=== PATIENT | male | born 1980 | race Caucasian/White ===

== ENCOUNTER 2017-04-23 22:34 | Emergency (ER) | payer BC ==
--- NOTE | 2017-04-23 23:03 | RAD ---
EXAM DESCRIPTION: Abdomen Series CLINICAL HISTORY: epigasric substernal pain COMPARISON: None FINDINGS: There is mild bilateral peribronchial cuffing. Supine and upright images of the abdomen were submitted. There is no free air in the abdomen. There is no evidence of bowel obstruction. IMPRESSION: Findings suggest mild edema or viral inflammation of the lungs. Constipation. Electronically signed by: Gregory Rahman 04/23/2017 11:02 PM [facility]
--- NOTE | 2017-04-23 23:04 | ED.PDOC ---
History of Present Illness - General Chief Complaint: Abdominal Pain Stated Complaint: epigastric pain Time Seen by Provider: 04/23/17 22:35 Source: patient Exam Limitations: no limitations - History of Present Illness Initial Comments: the patient is a 37-year-old male presenting to emergency room secondary to epigastric discomfort that first started yesterday. He had some radiation to his back into his left shoulder. It occurred while he was sitting still at home. He does normally lead a fairly active lifestyle and does not have any chest pain with activity. He does have a long-standing history of gastritis and gastroesophageal reflux disease for which he does not take any medications. He started developing some epigastric and substernal chest discomfort today but didn't get worse just an hour prior to arrival so he decided to show up for work up here. He apparently has had some questionable discomfort in the past as he has had a nuclear scan roughly for 5 years ago according to him that was completely normal. I do not have any previous EKGs for comparison. He does report concomitant symptoms of diaphoresis and his hands tingling. Timing/Duration: 24 hours Severity: moderate Improving Factors: nothing Worsening Factors: nothing Associated Symptoms: diaphoresis, malaise, nausea/vomiting - 1 Allergies/Adverse Reactions: Allergies NO KNOWN ALLERGY Allergy (Verified 04/23/17 23:05) Home Medications: Ambulatory Orders Hydrochlorothiazide 04/23/17 Lisinopril 5 mg PO 04/23/17 Esomeprazole Magnesium [Nexium] 40 mg PO BID #30 cap 04/24/17 Review of Systems - Review of Systems Constitutional: States: malaise EENTM: States: no symptoms reported Respiratory: States: no symptoms reported Cardiology: States: chest pain - lower substternal and very brief Gastrointestinal/Abdominal: States: abdominal pain - pigastric, nausea, vomiting Genitourinary: States: no symptoms reported Musculoskeletal: States: back pain - radiating pain to the left posterior shoulder Skin: States: no symptoms reported Neurological: States: no symptoms reported Endocrine: States: no symptoms reported All other Systems: No Change from Baseline Past Medical History (General) - Patient Medical History Hx Hypertension: Yes Hx Cancer: No Hx Hepatitis C: No - Vaccination History Hx Tetanus, Diphtheria Vaccination: No Hx Influenza Vaccination: Yes - Social History Hx Tobacco Use: No Hx Alcohol Use: No - Female History Patient : No Family Medical History - Family History Mother Family History: Unknown Physical Exam - Physical Exam General Appearance: Alert, Anxious, No apparent distress Eye Exam: bilateral normal Ears, Nose, Throat: hearing grossly normal, normal ENT inspection, normal pharynx Neck: full range of motion, supple Respiratory: lungs clear, normal breath sounds, no respiratory distress, no accessory muscle use Cardiovascular/Chest: normal peripheral pulses, regular rate, rhythm, no edema Peripheral Pulses: radial,right: 2+, radial,left: 2+, dorsalis pedis,right: 2+, dorsalis pedis,left: 2+ Gastrointestinal/Abdominal: soft, other - mild epigastric discomfort palpation. No definite rebound or peritoneal signs. Rectal Exam: deferred Back Exam: normal inspection, no CVA tenderness, no vertebral tenderness Extremity: normal range of motion, non-tender, normal inspection, no pedal edema , normal capillary refill Neurologic: form designer II-XII nml as tested, alert, normal mood/affect, oriented x 3 Skin Exam: normal color Comments: Vital Signs - 24 hr 04/23/17 22:40 Temperature 98.0 F Pulse Rate [ 73 Right] Respiratory 16 Rate Blood Pressure 141/95 [Left Arm] O2 Sat by Pulse 97 Oximetry Progress - Progress Progress: 04/24/17 02:00 the patient is a 37-year-old male presenting to the emergency room secondary to epigastric and lower substernal chest pain. This appears to be much more likely due to gastritis and esophagitis than to a cardiac origin. the problem may be currently being compounded by constipation. The patient should take MiraLAX daily for the next week. Additionally he will be written for Nexium 40 mg twice daily for the next 2 weeks after which he can take Pepcid 20 mg daily [id number]. Additionally he should keep some liquid Maalox with him for any symptom flare. ER warnings were given for any acute worsening. He should avoid large meals and hot or spicy foods along with nicotine caffeine and alcohol for at least the next week. he should follow up with his primary care doctor before the weekend. - Results/Orders Results/Orders: Laboratory Tests 04/23/17 04/23/17 04/23/17 22:45 22:45 22:45 WBC 10.4 RBC 6.38 H Hgb 17.5 Hct 51.7 MCV 81.0 MCH 27.4 MCHC 33.9 RDW 13.1 Plt Count 233 MPV 8.6 Absolute Neuts (auto) 8.50 H Absolute Lymphs (auto) 1.20 Absolute Monos (auto) 0.50 Absolute Eos (auto) 0.10 Absolute Basos (auto) 0.10 Neutrophils % 81.7 H Lymphocytes % 11.7 L Monocytes % 4.6 Eosinophils % 1.2 Basophils % 0.8 PT 10.8 INR 0.960 PTT (SP) 31.1 Sodium 138 Potassium 3.8 Chloride 105 Carbon Dioxide 28 Anion Gap 8.8 L BUN 13 Creatinine 0.98 BUN/Creatinine Ratio 13.3 Random Glucose 113 H Serum Osmolality 276.6 Calcium 9.0 Magnesium 2.1 Total Bilirubin 0.5 AST 19 ALT 20 Alkaline Phosphatase 33 L Creatine Kinase 164 CK-MB (CK-2) 1.8 CK-MB (CK-2) % Not Reportable Troponin I < 0.02 Serum Total Protein 7.0 Albumin 4.4 Globulin 2.6 Albumin/Globulin Ratio 1.7 Amylase 60 Lipase 23 04/24/17 01:35 WBC RBC Hgb Hct MCV MCH MCHC RDW Plt Count MPV Absolute Neuts (auto) Absolute Lymphs (auto) Absolute Monos (auto) Absolute Eos (auto) Absolute Basos (auto) Neutrophils % Lymphocytes % Monocytes % Eosinophils % Basophils % PT INR PTT (SP) Sodium Potassium Chloride Carbon Dioxide Anion Gap BUN Creatinine BUN/Creatinine Ratio Random Glucose Serum Osmolality Calcium Magnesium Total Bilirubin AST ALT Alkaline Phosphatase Creatine Kinase 145 CK-MB (CK-2) 1.8 CK-MB (CK-2) % Not Reportable Troponin I < 0.02 Serum Total Protein Albumin Globulin Albumin/Globulin Ratio Amylase Lipase chest x-rayan abdominal x-ray showed no evidence of any acute pathology other than constipation.. EKG shows normal sinus rhythm at a rate of 83 bpm. Normal axis. No acute ST segment changes concerning for ischemia. There is a mildly delayed R-wave transition in anterior leads. No previous EKG for comparison. Departure - Departure Clinical Impression: Abdominal pain Qualifiers: Abdominal location: epigastric Qualified Code(s): R10.13 - Epigastric pain Constipation Qualifiers: Constipation type: unspecified constipation type Qualified Code(s): K59.00 - Constipation, unspecified Disposition: Discharge to Home or Self Care Condition: Fair Departure Forms: ED Discharge - Pt. Copy, Patient Portal Self Enrollment Instructions: DI for Abdominal Pain-Adult Diet: bland diet Activity: increase activity as tolerated Referrals: Mathew Lux MD [Primary Care Provider] - 1-5 Days Prescriptions: Esomeprazole Magnesium [Nexium] 40 mg PO BID #30 cap Home Medications: Ambulatory Orders Hydrochlorothiazide 04/23/17 Lisinopril 5 mg PO 04/23/17 Esomeprazole Magnesium [Nexium] 40 mg PO BID #30 cap 04/24/17 Additional Instructions: the patient is a 37-year-old male presenting to the emergency room secondary to epigastric and lower substernal chest pain. This appears to be much more likely due to gastritis and esophagitis than to a cardiac origin. the problem may be currently being compounded by constipation. The patient should take MiraLAX daily for the next week. Additionally he will be written for Nexium 40 mg twice daily for the next 2 weeks after which he can take Pepcid 20 mg daily [id number]. Additionally he should keep some liquid Maalox with him for any symptom flare. ER warnings were given for any acute worsening. He should avoid large meals and hot or spicy foods along with nicotine caffeine and alcohol for at least the next week. he should follow up with his primary care doctor before the weekend.
[2017-04-23 23:05] VITALS: TEMP 98
[2017-04-23] MEDS ORDERED: MAGNESIUM HYDROXIDE 30 ML UD PO ONE (23:19)
[2017-04-24] MEDS ORDERED: PANTOPRAZOLE SODIUM TAB 40 MG PO ONE (01:29)
[2017-04-24] MEDS ORDERED: SUCRALFATE 1 GM/10 ML 1 GM UD PO ONE (01:29)
[2017-04-24 01:51] VITALS: BP 136/88; O2SAT 99
== END 2017-04-24 02:07 | disposition home or self-care (01) ==
LOC: ER 22:34
DX: K59.00 Constipation, unspecified (principal); I10 Essential (primary) hypertension

== ENCOUNTER → 2017-05-03 | Outpatient (CLI) | payer BC ==
--- NOTE | 2017-05-04 08:52 | US ---
EXAM DESCRIPTION: Gall Bladder: ULTRASOUND. CLINICAL HISTORY: EPIGASTRIC PAIN COMPARISON: Abdominal radiograph 04/23/2017. TECHNIQUE: Transabdominal scannin-dimensional and Doppler modes. FINDINGS: The gallbladder contains a large amount of sludge. Nonmobile 1.3 cm stone in the gallbladder neck with acoustic shadowing and second mobile stone measuring 1.4 cm. No fluid around the gallbladder. No wall thickening. 2.7 mm. Common bile duct caliber is 8.1 mm which is within normal limits. . No stones in the visualized portion of the duct. Not tender with transducer pressure. The liver demonstrates heterogeneously increased echogenicity; contour of the liver capsule is smooth where seen. No fluid around the liver. Intrahepatic biliary ducts are non-dilated. Craniocaudal dimension in the mid-clavicular axis is 15.5 cm. Pancreas head, body, tail normal in size and echogenicity, difficult to visualize due to patient body habitus and bowel gas. Pancreatic duct is not dilated. Normal Doppler vascularity in the randa hepatis. Abdominal aorta proximal diameter. IVC visualized and normal caliber. Right kidney long axis measures 11.9 x 6.4 x 6.3 cm. Normal mid renal cortical thickness. Echogenicity normal with no hydronephrosis, no large calcifications, and no perinephric fluid. Contour smooth and vascularity normal. Proximal ureter not visualized. IMPRESSION: 1. Cholelithiasis but no wall thickening or pericholecystic fluid. Stone in the gallbladder neck is not moving. Nontender during scanning. 2. Liver normal size. Slight increased diffuse echogenicity could represent early steatosis . No ascites. Anchors was difficult to visualize due to patient body habitus and intestinal gas. 3. Normal ultrasound of the right kidney. Electronically signed by: Gregory Sykes MD 05/04/2017 8:50 AM STANDARDS ANALYST
== END | disposition home or self-care (01) ==
LOC: US 09:23
PROVIDERS: ATTEND Family Medicine
DX: K59.00 Constipation, unspecified (principal); R10.13 Epigastric pain; E53.9 Vitamin B deficiency, unspecified; R07.2 Precordial pain

== ENCOUNTER 2017-05-15 05:35 | Day surgery (SDC) | payer BC ==
[2017-05-15] MEDS ORDERED: LACTATED RINGERS 1,000 ML ONE (06:41)
[2017-05-15] MEDS ORDERED: SODIUM CHL 0.9% 100ML MINI-BAG 100 ML IVPB ONE (06:41)
[2017-05-15] MEDS ORDERED: ceFAZolin SODIUM 1 GM VIAL ONE (06:41)
[2017-05-15] MEDS ORDERED: BUPIVACAINE 0.25% W/EPI 50 ML VIAL INJ ONE (08:15)
[2017-05-15] MEDS ORDERED: HEPARIN SODIUM (PORCINE) 10,000 UNITS/ML VIAL ONE (08:15)
[2017-05-15] MEDS ORDERED: ROCURONIUM BROMIDE 10 MG/ML VIAL ONE ×2 (08:25→09:38)
[2017-05-15] MEDS ORDERED: fentaNYL CITRATE INJ 50 MCG/ML AMP ONE (08:25)
[2017-05-15] MEDS ORDERED: MIDAZOLAM INJ 2 MG/2 ML VIAL ONE (08:25)
[2017-05-15] MEDS ORDERED: HYDROmorphone HCL INJ 2 MG/ML VIAL ONE (09:38)
[2017-05-15] MEDS ORDERED: SUGAMMADEX SODIUM 200 MG/2 ML VIAL IV ONE (09:38)
[2017-05-15] MEDS ORDERED: ELECTROLYTE-A 1,000 ML IVS ONE (09:59)
[2017-05-15] MEDS ORDERED: LIDOCAINE 1% 10 ML VIAL INJ ONE (10:00)
[2017-05-15] MEDS ORDERED: diphenhydrAMINE HCL 50 MG/ML VIAL IV ONE (10:00)
[2017-05-15] MEDS ORDERED: PROPOFOL 200 MG/20 ML VIAL IV ONE (10:00)
[2017-05-15] MEDS ORDERED: raNITIdine HCL INJ 25 MG/ML VIAL IV ONE (10:00)
[2017-05-15] MEDS ORDERED: DEXAMETHASONE INJ 10 MG/ML VIAL IV ONE (10:00)
[2017-05-15] MEDS ORDERED: METOCLOPRAMIDE HCL INJ 10 MG/2 ML VIAL IV ONE (10:00)
[2017-05-15] MEDS ORDERED: KETOROLAC TROMETHAMINE INJ 30 MG/ML VIAL IV ONE (10:00)
[2017-05-15] MEDS ORDERED: MEPERIDINE HCL 50 MG/ML VIAL ONE (10:47)
--- NOTE | 2017-05-15 11:20 | OP ---
DATE OF PROCEDURE: 05/15/17 PREOPERATIVE DIAGNOSIS: 1. Symptomatic cholelithiasis. 2. Fatty infiltration of the liver. POSTOPERATIVE DIAGNOSIS: 1. Symptomatic cholelithiasis. 2. Chronic cholecystitis. 3. Cholesterolosis. 4. Fatty infiltration of the liver. PROCEDURE: 1. Laparoscopic cholecystectomy with intraoperative cholangiography using fluoroscopy. 2. Wedge biopsy, right lobe of the liver. SURGEON: Barry Valladares MD. DUST BRUSH ASSEMBLER: None. ANESTHESIA: Local infiltration of 0.25% Marcaine with epinephrine and general endotracheal anesthesia. INDICATION: The patient is a 37-year-old male who has had right upper quadrant pain associated with fatty meals. He has had associated nausea and diarrhea. Ultrasound revealed a gallstone in the neck of the gallbladder plus what was consistent with fatty infiltration of the liver. The patient was brought to the Surgical Suite today for cholecystectomy with cholangiography and wedge biopsy of the liver after the risks, benefits and alternatives to the procedure were discussed and accepted. FINDINGS: The gallbladder wall was mildly thickened. There were adhesions from the duodenum and the omentum to the neck of the gallbladder. Intraoperative cholangiography revealed a very small common bile duct with no strictures or filling defects and there was excellent flow into the duodenum. Examination of the specimen revealed a single stone and cholesterolosis along with mildly thickened wall. No other pathology was identified. DESCRIPTION OF PROCEDURE: After adequate general endotracheal anesthesia was obtained, the patient was prepped and draped in the usual sterile manner. Surgical time-out was taken. The infraumbilical area was infiltrated with 0.25 % Marcaine with epinephrine. A curvilinear incision was fashioned and carried down through the subcutaneous tissue to the midline fascia. Traction sutures were placed on either side of the midline. A small incision was made in the midline fascia and the peritoneum was opened bluntly. Chilo trocar was introduced under direct vision into the abdominal cavity and fixed in place with the 20 mL balloon. CO2 was then insufflated until a pressure of 12 mmHg was reached and the abdomen was tympanitic in all four quadrants. When this was done, the laparoscope was introduced. The abdomen was inspected. The patient was then placed in reverse Trendelenburg position, turned to the left side. The upper abdominal ports were placed under direct vision. The gallbladder was grasped, retracted anteriorly and laterally. The neck of the gallbladder was retracted laterally. The adhesions to the neck of the gallbladder were taken down using blunt dissection. When this was done, the triangle of Calot was then explored with the cystic duct and cystic artery identified and isolated. The cystic duct was hemoclipped once proximally. The cystic artery was hemoclipped twice proximally and once distally. A second arterial vessel was identified and clipped twice proximally. When this was done , a small incision was made in the cystic duct. The cholangiogram catheter was introduced through a separate stab wound in the right upper quadrant, introduced into the cystic duct and clipped in place. Bile was easily aspirated. It flushed easily. At this point, towels were placed over the field. All the instruments were removed. The patient was placed flat and the intraoperative cholangiograms were performed in the usual manner with the findings of free flow into the duodenum with no filling defects or strictures noted. At this point, the patient was placed back in reverse Trendelenburg position. The gallbladder neck was retracted laterally and the cystic duct catheter was removed. The cystic duct was hemoclipped three times distally and divided between the hemoclips. The cystic artery was divided. The second arterial vessel was identified and clipped, then divided. The gallbladder was then dissected free from the gallbladder bed of the liver using electrocautery without difficult. The gallbladder was removed from the infraumbilical port site in the usual manner under direct vision. When this was done, the subhepatic space and subphrenic space were irrigated copiously with saline. The effluent was noted to be clear. There was good hemostasis. At this point, the scissors were used to do a wedge biopsy of the right lobe of the liver a couple of centimeters lateral to the falciform ligament. The specimen was removed from the infraumbilical port. Hemostasis was obtained with electrocautery with the cautery turned up to 50. When hemostasis was noted to be adequate, again, the subhepatic space and subphrenic space were irrigated copiously with saline. The effluent was noted to be clear. There was good hemostasis in both the gallbladder bed of the liver and the biopsy site. The randa hepatis was inspected and no bleeding or bile leak was identified. The upper abdominal ports were removed under direct vision and good hemostasis was noted. At this point, the CO2, the laparoscope and the infraumbilical port were removed. The infraumbilical port site fascia was approximated with a single [id number] suture of 0 Vicryl. Subcutaneous tissue was irrigated with saline. Skin edges were approximated with 4-0 Vicryl subcuticular sutures, benzoin and Steri-Strips. Sterile dressings were applied. The patient was awakened and taken to the Recovery Room in good and stable condition. Estimated blood loss was approximately 75 mL. All sponge, needle and instrument counts were correct. #[id number] [facility]
[2017-05-15 12:32] VITALS: BP 130/88; TEMP 97.9; O2SAT 98
== END 2017-05-15 12:12 | disposition home or self-care (01) ==
LOC: AMB 05:35
PROVIDERS: ATTEND Surgery
DX: K80.10 Calculus of gallbladder with chronic cholecystitis without obstruction (principal); K76.0 Fatty (change of) liver, not elsewhere classified; I10 Essential (primary) hypertension; K21.9 Gastro-esophageal reflux disease without esophagitis; Z79.899 Other long term (current) drug therapy
CPT/HCPCS: 00790; 36415; 47379; 47563; 81001; 85025; J0690; J1100; J1170; J1200; J1644; J1885; J2250; J2765; J2780; J3010; J3490; J7050; J7120

== ENCOUNTER → 2018-03-14 | Outpatient (CLI) | payer SELFPAY | LOC: LAB.O 13:48 | PROVIDERS: ATTEND Family Medicine | DX: D56.8 Other thalassemias (principal) ==

== ENCOUNTER → 2020-03-11 | Outpatient (CLI) | payer SELFPAY | LOC: LAB.O 09:17 | PROVIDERS: ATTEND Family Medicine | DX: D45 Polycythemia vera (principal) ==